=== PATIENT | female | born 1965 | race Caucasian/White ===

== ENCOUNTER → 2023-11-20 03:04 | Outpatient (CLI) | payer MEDICARE, MEDICAID, SELFPAY ==
--- NOTE | 2023-11-20 08:30 | DI.RAD_ITS ---
Exam(s) XR FOOT LT COMPLETE EXAM: XR FOOT LT COMPLETE CLINICAL HISTORY: Left foot pain,m79.672. TECHNIQUE: 2D digital imaging was performed of the left foot. Three images were obtained. AP, obli que and lateral views were obtained. COMPARISON: No exams were available for comparison FINDINGS: BONES: No acute fracture is present. No bony destructive lesion is seen. There is a small enthesophyt e at the posterior calcaneus. JOINTS: No dislocation present. There are hammertoe deformities of the 2nd through 5th toes. Joint s paces are well maintained. SOFT TISSUE: Normal. IMPRESSION: Findings in the left foot as described above. DATA REPOSITORY: RADIATION DOSE DELIVERED:
--- NOTE | 2023-11-20 14:08 | DI.RAD_ITS ---
Exam(s) XR FOOT RT COMPLETE EXAM: XR FOOT RT COMPLETE CLINICAL HISTORY: Right foot pain,m79.671. TECHNIQUE: 2D digital imaging was performed of the right foot. Three images were obtained. AP, obl ique and lateral views were obtained. COMPARISON: No exams were available for comparison FINDINGS: BONES: No acute fracture is present. No bony destructive lesion is seen. JOINTS: No dislocation present. There are mild degenerative changes seen at the 1st MTP joint. SOFT TISSUE: Normal. IMPRESSION: Mild degenerative changes of the 1st MTP joint. DATA REPOSITORY: RADIATION DOSE DELIVERED:
== END ==
PROVIDERS: PCP Family Medicine; Visit Provider Podiatrist
DX: M79.671 Pain in right foot (principal); M79.672 Pain in left foot
CPT/HCPCS: 73630

== ENCOUNTER → 2024-01-02 13:42 | Outpatient (BNVA) | payer MEDICARE, MEDICAID, SELFPAY | PROVIDERS: PCP Family Medicine; Referring Provider Family Medicine; Visit Provider Podiatrist | DX: M76.811 Anterior tibial syndrome, right leg (principal); M79.672 Pain in left foot; M79.671 Pain in right foot; M20.21 Hallux rigidus, right foot; G35 Multiple sclerosis | CPT/HCPCS: 99213 ==

== ENCOUNTER → 2024-02-13 15:07 | Outpatient (BNVA) | payer MEDICARE, MEDICAID, SELFPAY | PROVIDERS: PCP Family Medicine; Referring Provider Family Medicine; Visit Provider Podiatrist | DX: M76.811 Anterior tibial syndrome, right leg (principal); M79.671 Pain in right foot; M79.672 Pain in left foot; M20.21 Hallux rigidus, right foot; G35 Multiple sclerosis | CPT/HCPCS: 99213 ==